=== PATIENT | female | born 1995 | race African-American/Black ===

== ENCOUNTER 2017-01-17 16:46 | Emergency (ER) | payer OTHER ==
[~2017-01-17] VITALS: Ht 167.6 cm; Wt 81.7 kg
[2017-01-17 17:02] LABS: URINE BILIRUBIN NEGATIVE (Negative); URINE BLOOD NEGATIVE (Negative); URINE COLOR YELLOW; URINE GLUCOSE-RANDOM* NEGATIVE (Negative); URINE KETONES NEGATIVE (Negative); URINE NITRITE NEGATIVE (Negative); URINE PROTEIN (DIPSTICK) NEGATIVE (Negative); URINE SPECIFIC GRAVITY 1.025 (1.003-1.035)
[2017-01-17 17:19] LABS: CASTS None Seen /LPF (None Seen); CRYSTALS None Seen /LPF (None Seen); SQUAMOUS 4-10 Moderate /LPF (0-3); URINE RBC None Seen /HPF (0-2)
[2017-01-17 17:20] LABS: URINE WBC 0-5 Rare /HPF (0-5)
[2017-01-17 17:23] LABS: BASOPHILS 0.6 % (0.0-2.0); HEMATOCRIT 37.9 % (37.0-47.0); HEMOGLOBIN 12.7 gm/dL (12.0-15.0); LYMPHOCYTES 32.3 % (24.0-44.0); MANUAL DIFF NO; MCH 28.7 pg (26.0-34.0); MCHC 33.4 g/dL (28.0-37.0); MCV 85.8 fL (80.0-100.0); MONOCYTES 7.3 % (1.0-8.0); PLATELET COUNT 217 thou/uL (150-400); POLYS 58.8 % (36.0-66.0); RBC 4.42 mil/uL (4.20-5.00); RDW 13.5 % (10.5-14.5)
[2017-01-17 17:35] LABS: CREATININE 0.8 mg/dL (0.6-1.0); POTASSIUM 3.8 mmol/L (3.5-5.1)
[2017-01-17 17:40] LABS: ALBUMIN 3.7 g/dL (3.4-5.0); TOTAL BILIRUBIN 0.6 mg/dL (<0.1-1.0); TOTAL PROTEIN 7.4 g/dL (6.4-8.2)
[2017-01-17 18:26] VITALS: BP 111/60
== END 2017-01-17 18:27 | disposition home or self-care (01) ==
LOC: ER 16:46
PROVIDERS: Physician Assistant
DX: O20.0 Threatened abortion (principal); F17.210 Nicotine dependence, cigarettes, uncomplicated; F10.99 Alcohol use, unspecified with unspecified alcohol-induced disorder; Z3A.00 Weeks of gestation of pregnancy not specified

== ENCOUNTER 2017-02-09 20:10 | Emergency (ER) | payer OTHER ==
--- NOTE | ~2017-02-09 | EKG ---
[place] [address] [facility] [place] [address] ELECTROCARDIOGRAM REPORT Name: ANTELMO ALLISON Room #: DEP [facility] CAMPUSBettina#: [id number] Admission: 02/09/17 Attend Phys: Discharge: 02/09/17 Date of : [birth year] Report #: [id number] THIS REPORT FOR: //name// [facility] ED Test Date: 2017-02-09 Test Time: 20:31:34 Pat Name: ANTELMO ALLISON Department: Room: Gender: F Biomedical Specialist: [id number] : 1995 Requested By: Maureen Kevin Order Number: [id number] MD: Wolf Alvarez Measurements Intervals [place] Rate: 64 P: 49 RI: 135 QRS: 25 QRSD: 97 T: 43 QT: 399 QTc: 412 Interpretive Statements Sinus rhythm Anterior T-wave abnormality No previous ECG available for comparison Electronically Signed On 02-13-2017 7:55:33 CDT by Wolf Alvarez [email or web address] <ELECTRONICALLY SIGNED> By: Wolf Alvarez MD, [facility] 02/13/17 [id number] Wolf Alvarez MD, FACC /EPI
[2017-02-09 20:26] VITALS: BP 120/71
[2017-02-09 20:46] LABS: URINE BILIRUBIN NEGATIVE (Negative); URINE BLOOD NEGATIVE (Negative); URINE COLOR YELLOW; URINE GLUCOSE-RANDOM* NEGATIVE (Negative); URINE KETONES NEGATIVE (Negative); URINE NITRITE NEGATIVE (Negative); URINE PROTEIN (DIPSTICK) NEGATIVE (Negative); URINE SPECIFIC GRAVITY 1.015 (1.003-1.035)
[2017-02-09 20:56] LABS: BACTERIA 1-9 Few /HPF (None Seen); CASTS None Seen /LPF (None Seen); CRYSTALS None Seen /LPF (None Seen); SQUAMOUS >10 Many /LPF (0-3); URINE RBC None Seen /HPF (0-2); URINE WBC 6-15 Few /HPF (0-5)
== END 2017-02-09 21:07 | disposition left against medical advice (07) ==
LOC: ER 20:10
PROVIDERS: Physician Assistant
DX: Z53.21 Procedure and treatment not carried out due to patient leaving prior to being seen by health care provider (principal)

== ENCOUNTER 2017-02-20 18:25 | Emergency (ER) | payer OTHER ==
[~2017-02-20] VITALS: Ht 157.5 cm; Wt 72.6 kg
[2017-02-20 20:22] VITALS: BP 111/60
[2017-02-20] MEDS ORDERED: COLACE100 MG PO (20:35)
[2017-02-20] MEDS ORDERED: MILK OF MA2400 MG/10 PO (20:35)
== END 2017-02-20 20:52 | disposition home or self-care (01) ==
LOC: ER 18:25
DX: O26.899 Other specified pregnancy related conditions, unspecified trimester (principal); R10.30 Lower abdominal pain, unspecified; R11.0 Nausea; F17.210 Nicotine dependence, cigarettes, uncomplicated; F10.99 Alcohol use, unspecified with unspecified alcohol-induced disorder